=== PATIENT | female | born 1985 | race Caucasian/White ===

== ENCOUNTER → 2017-04-11 | Outpatient (CLI) | payer BC ==
[2017-04-11 07:35] LABS: CREATININE 0.9 mg/dL (0.5-1.1)
[2017-04-11 07:39] LABS: ESTIMATED GFR (MDRD EQUATION) > 60
== END | disposition disaster alternative care site (69) ==
LOC: GRAD 06:47 → GLAB 07:00 → GRAD 08:00
PROVIDERS: Family Medicine
DX: R91.1 Solitary pulmonary nodule (principal); Q61.02 Congenital multiple renal cysts; K76.89 Other specified diseases of liver; R06.02 Shortness of breath; R53.83 Other fatigue; R60.9 Edema, unspecified; R11.2 Nausea with vomiting, unspecified
CPT/HCPCS: Q9967